=== PATIENT | male | born 1955 | race Caucasian/White ===

== ENCOUNTER → 2016-04-28 | Outpatient (CLI) | payer BC ==
[~2016-04-28] MED LIST: ASPEC81 PO; METO25TA3 PO; PRLSR20 PO; UMEC1INH INH
[2016-04-28 11:24] LABS: CHOLESTEROL/HDL RATIO 5.5
== END | disposition home or self-care (01) ==
LOC: C.LAB 10:09
DX: R10.9 Unspecified abdominal pain (principal); K76.0 Fatty (change of) liver, not elsewhere classified; R73.9 Hyperglycemia, unspecified; E78.5 Hyperlipidemia, unspecified

== ENCOUNTER → 2016-05-03 | Outpatient (CLI) | payer BC ==
[~2016-05-03] MED LIST changes: -METO25TA3 PO
--- NOTE | 2016-05-03 14:06 | DIAGNOSTIC IMAGING REPORT ---
NUCLEAR GASTRIC EMPTYING STUDY: CLINICAL HISTORY: EPIGASTRIC PAIN COMPARISON STUDY: None TECHNIQUE: Following the oral administration of 1.1 mCi of technetium 99m sulfur colloid in egg sandwich and 8 ounces of water, static abdominal images are performed anteriorly and posteriorly at 0 minutes, 1 hour, 2 hours, and 4 hour time intervals. Gastric emptying was calculated utilizing the geometric mean method. FINDINGS: There is approximately 64 % gastric activity remaining at the 1 hour time interval, 55 % at the 2 hour time interval (normal is less than 60%), and 14 % remaining at the 4 hour time interval (normal is less than 10%). IMPRESSION: 1 hour and 2 hour measurements are within normal limits. There is mild gastric retention on the 4 hour measurement : 14% (normal is less than 10%). Electronically signed by: Quinton Woods M.D. 05/03/2016 2:04 PM Dictated Date/Time: 05/03/2016 2:02 PM
--- NOTE | 2016-05-11 11:08 | PULMONARY FUNCTION TEST ---
CLINICAL DATA: A 61-year-old male with a height of 71 inches and a weight of 230 pounds, referred for testing for COPD. Spirometry pre- and post-bronchodilator was performed. Prebronchodilator spirometry demonstrates mild obstructive airways disease. FVC was 89% of predicted. FEV1 was 79% of predicted. [id number] was 53% of predicted. There was minimal change after inhaled bronchodilator. FVC increased 5% to 93% of predicted. FEV1 increased 5% to 83% of predicted. [id number] showed no significant change. IMPRESSION: Mild obstructive airways disease with no significant change after inhaled bronchodilator. MTDD
== END | disposition home or self-care (01) ==
LOC: C.NUCL 08:13
DX: R10.13 Epigastric pain (principal)

== ENCOUNTER → 2016-05-04 | Outpatient (CLI) | payer BC ==
[~2016-05-04] MED LIST changes: +OPTIRAY 320 IV PRN
--- NOTE | 2016-05-04 08:55 | DIAGNOSTIC IMAGING REPORT ---
CT SCAN OF THE ABDOMEN COMBO LIVER PROTOCOL CLINICAL HISTORY: Epigastric abdominal pain. Hepatic steatosis. COMPARISON STUDY: Chest CT dated 04/13/2016. TECHNIQUE: Before and following the IV administration of 94 cc of Optiray 320, CT scan of the abdomen is performed from the lung bases to the pelvic inlet utilizing the liver protocol. Images are reviewed in the axial, sagittal, and coronal planes. IV contrast was administered without complication. Automated dose control exposure was utilized. CT DOSE: 1851.81 mGycm FINDINGS: Lung bases: The heart is normal in size and without pericardial effusion. Emphysema is noted. There is a 4 mm right middle lobe pulmonary nodule seen on axial image #10. A 5 mm pleural-based nodules at the right lung base on image #62. No airspace consolidation or pleural effusion is identified. Linear scarring versus atelectasis is present at the left lung base. There is a tiny hiatal hernia. Liver: The contrast-enhanced liver is enlarged, measuring 19.8 cm in length. The liver demonstrates diffusely diminished attenuation consistent with hepatic steatosis. There is no intrahepatic biliary ductal dilatation. No enhancing hepatic lesion is identified on the postcontrast images. 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 The hepatic veins, portal veins, superior mesenteric vein, and splenic vein are widely patent. Gallbladder: Surgically absent noting clips in the gallbladder fossa. Spleen: Normal in size and attenuation. Pancreas: Unremarkable. Adrenal glands: Unremarkable. Kidneys: No renal calculi are identified on the unenhanced series. The contrast enhanced kidneys are normal in size and without hydronephrosis. The kidneys enhance symmetrically. Abdominal vasculature: The abdominal aorta is normal in course and caliber noting mild atherosclerotic calcification. Bowel: Visualized portions of the small bowel and colon are normal in course and caliber. There are scattered colonic diverticula identified. A normal appendix is partially visualized. Peritoneum: There is no intraperitoneal free air or abdominal ascites. There is a fat-containing umbilical hernia. Lymphadenopathy: None. Skeletal structures: No lytic or blastic lesions are seen. IMPRESSION: 1. Hepatomegaly and hepatic steatosis. 2. No enhancing hepatic lesion is identified in the postcontrast images. 3. 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 4. Emphysema. 5. There are 4 mm right middle lobe and 5 mm right lower lobe pulmonary nodules. These can be followed as per the Fleischner criteria. Please refer to below summary of Fleischner criteria recommendations for follow-up of incidental CT nodules (William Bowman, Guidelines for management of small pulmonary nodules detected on CT scans: A statement from the Fleischner Society, Radiology 237: [phone].) Low Risk Patient: Minimal or no smoking or other known risk factors for malignancy <=4 mm: No follow-up needed. >4-6 mm: Initial follow-up CT at 12 months; if unchanged, no further follow-up. >6-8 mm: Initial follow-up CT at 6-12 months then at 18-24 months if no change. >8 mm: Follow-up CT at \R\3, 9, 24 months, or PET and/or biopsy. High Risk Patient: History of smoking or other known risk factors <=4 mm: Follow-up at 12 months; if unchanged, no further follow-up. >4-6 mm: Initial follow-up CT at 6-12 months then at 18-24 months if no change. >6-8 mm: Initial follow-up CT at 3-6 months then at 9-12 and 24 months if no change. >8 mm: Same as low risk patient. Note: Nodule size measured as average of length and width. Ground glass or partly solid nodules may require longer follow-up to exclude indolent adenocarcinoma. Electronically signed by: Jhonathan Tubbs M.D. 05/04/2016 8:53 AM Dictated Date/Time: 05/04/2016 8:39 AM
== END | disposition home or self-care (01) ==
LOC: C.CTS 07:58
DX: R10.13 Epigastric pain (principal); K76.0 Fatty (change of) liver, not elsewhere classified; J43.9 Emphysema, unspecified; R91.8 Other nonspecific abnormal finding of lung field

== ENCOUNTER → 2016-05-09 | Outpatient (CLI) | payer BC ==
[~2016-05-09] MED LIST changes: -OPTIRAY 320 IV PRN
--- NOTE | 2016-05-09 12:53 | DIAGNOSTIC IMAGING REPORT ---
DOUBLE CONTRAST UPPER GI SERIES CLINICAL HISTORY: Epigastric abdominal pain. COMPARISON STUDY: Abdominal CT dated 05/04/2016. TECHNIQUE: A standard air contrast upper GI series was performed. Spot images of the esophagus and stomach were obtained in multiple obliquities both upright and prone. FINDINGS: The patient swallowed barium without difficulty. The esophagus is structurally normal without evidence of intrinsic or extrinsic mass. The esophageal mucosal pattern is normal. No gastroesophageal reflux was elicited by having the patient perform the Valsalva maneuver. Minimal dysmotility is observed. The gastroesophageal junction distends normally. The stomach is normal in configuration and demonstrates normal distensibility. No mass or ulceration is identified. There was no evidence of gastritis. The duodenal bulb and sweep are unremarkable. Cholecystectomy clips are noted. Fluoroscopy time: 2.2 minutes Fluoroscopic images: 26 IMPRESSION: Minimal esophageal dysmotility. Otherwise unremarkable fluoroscopic upper GI series. Electronically signed by: Jhonathan Tubbs M.D. 05/09/2016 12:52 PM Dictated Date/Time: 05/09/2016 12:50 PM
--- NOTE | 2016-05-15 08:58 | PULMONARY FUNCTION TEST ---
CLINICAL DATA: A 61-year-old male, height is 71 inches and weight of 230 pounds referred for evaluation of COPD. Spirometry pre and post-bronchodilator were performed. FINDINGS: Pre-bronchodilator spirometry demonstrates mild obstructive airways disease. FVC was 89% of predicted. FEV1 was 79% of predicted. [id number] was 53% of predicted. There was minimal change after inhaled bronchodilator with a 5% improvement in FVC to 93% of predicted and a 5% improvement in FEV1 to 83% of predicted. IMPRESSION: Mild obstructive airways disease with minimal improvement after inhaled bronchodilator. MTDD
== END | disposition home or self-care (01) ==
LOC: C.RAD 11:41
DX: R10.13 Epigastric pain (principal); R07.89 Other chest pain; J44.9 Chronic obstructive pulmonary disease, unspecified; K22.4 Dyskinesia of esophagus

== ENCOUNTER → 2016-05-10 | Outpatient (CLI) | payer BC ==
--- NOTE | 2016-05-10 15:16 | DIAGNOSTIC IMAGING REPORT ---
MRI OF THE BRAIN WITHOUT CONTRAST CLINICAL HISTORY: VISUAL DISTURBANCES, NEW ONSET HOLT DISORDER COMPARISON STUDY: December 2007 FINDINGS: Sagittal T1, axial diffusion, proton density and T2 weighted axial, coronal FLAIR, and axial T1-weighted images were acquired. The patient was imaged under 0.7 [place] open MRI scanner. No intra or extra-axial mass lesions are visualized Axial diffusion-weighted images reveal no evidence of acute or subacute infarction. There is no evidence of ventricular dilatation. Proton density T2-weighted and FLAIR images reveal no significant intraparenchymal signal abnormalities. There are no abnormal flow voids. IMPRESSION: Normal MRI of the brain for age. Electronically signed by: Quinton Woods M.D. 05/10/2016 3:14 PM Dictated Date/Time: 05/10/2016 3:12 PM
== END | disposition home or self-care (01) ==
LOC: C.OPENMRI 14:23
DX: H53.9 Unspecified visual disturbance (principal); G44.52 New daily persistent headache (NDPH)

== ENCOUNTER → 2016-05-15 | Day surgery (SDC) | payer BC ==
[2016-05-11 09:44] VITALS: Ht 180.3 cm; Wt 104.5 kg
[~2016-05-15] VITALS: Ht 180.3 cm; Wt 104.5 kg
[~2016-05-15] MED LIST changes: +500ML BSS 0.3ML EPI 1:1000PF IRRIG ONE; +ACETAMINOPHEN 325 MG TAB PO PRN; +AMVISC PLUS 0.8ML SYRINGE INT OCU ONE; +BRIMONIDINE TART 0.2% OP SOLN PER DROP CHARGE ONE; +BSS FLUSH ONE; +ENDOCOAT 0.85ML SYRINGE INT OCU ONE; +EpINEphrine INJ 1MG/ML AMP 1 MG/ML AMP ONE; +LACTATED RINGER'S 1000ML 500 ML IV SCH; +LIDOCAINE 4% OP SOLN DROP CHARGE ONE; +LIDOCAINE 4% OP SOLN DROP CHARGE OPL SCH; +LIDOCAINE HCL 1% MPF 2 ML VIAL ONE; +MIDAZOLAM HCL 1 MG/ML 2ML VIAL ONE; +MOXIFLOXACIN OPH SOLN PER DROP CHARGE ONE; +POVIDONE-IODINE OP SOLN 30 ML BTL ONE; +PROPARACAINE 0.5% OP SOLN PER DROP CHARGE OPL SCH; +TOBRAMYCIN/DEXAMETHASONE OPH OINT PER APPLN CHARGE ONE
[2016-05-15] MEDS: PHENYLEPHRINE HCL 2.5% OP SOLN PER DROP CHARGE OPL SCH ×2 (09:46→09:51)
[2016-05-15] MEDS: TROPICAMIDE 1% OP SOLN PER DROP CHARGE OPL SCH ×2 (09:47→09:52)
[2016-05-15] MEDS: CYCLOPENTOLATE HCL 1% OP SOLN PER DROP CHARGE OPL SCH ×2 (09:48→09:53)
[2016-05-15] MEDS: KETOROLAC 0.5% OP SOLN PER DROP CHARGE OPL SCH ×2 (09:49→09:54)
[2016-05-15] MEDS: MOXIFLOXACIN OPH SOLN PER DROP CHARGE OPL SCH ×2 (09:50→10:00)
--- NOTE | 2016-05-15 11:16 | History & Physical Bridge - [place] ---
H&P Re-Evaluation Bridge Note: I have examined the patient, reviewed the History & Physical and in the interval since the performance of the History & Physical I have noted the following changes of clinical significance: No changes noted
--- NOTE | 2016-05-15 12:12 | Discharge Instructions-SurgCtr ---
Discharge Instructions Visit Reason for Visit: Cataract Left Eye Discharge Discharge Diagnosis / Problem: cataract left eye Discharge Goals Goal(s): Improve function Activity Recommendations Activity Limitations: per Instructions/Follow-up section Lifting Limitations: no more than 5 pounds Anesthesia . Post Anesthesia Instructions: If you have had General Anesthesia or IV Sedation: * Do not drive today. * Resume driving when surgeon permits. * Do not make important decisions or sign legal documents today. * Call surgeon for: 1. Temperature elevations greater than 101 degrees F. 2. Uncontrollable pain. 3. Excessive bleeding. 4. Persistent nausea and vomiting. 5. Medication intolerance (nausea, vomiting or rash). * For nausea and vomiting use only clear liquids such as: tea, soda, bouillon until nausea subsides, then gradually increase diet as tolerated. * If you have any concerns or questions, call your surgeon's office. If physician is unavailable and it is an emergency, call 911 or go to the nearest emergency room. . Instructions / Follow-Up Instructions / Follow-Up ACTIVITY RECOMMENDATIONS: * Light activities * You may walk outside, read, watch television. * Mild irritation and blurred vision are common for the first few days, redness around the white part of the eye is common. MEDICATIONS: Resume previous medications unless instructed otherwise by your surgeon. Eye drops (today and tomorrow): Ofloxacin- one drop in operative eye every 2 hours while awake Prednisolone 1% - one drop in operative eye every 2 hours while awake Ilevro - one drop operative eye 1 times daily SPECIAL CARE INSTRUCTIONS: * If any problems or concerns, please call Dr. Sutherland's office at . * Keep plastic shield taped over eye to sleep at night. * Keep plastic shield taped over eye except to administer eye drops. * Keep plastic shield on until office visit the following day. FOLLOW UP VISIT: Follow-up with Dr. Sutherland in the [place] office as scheduled. If not already scheduled, please call the office at . Diet Recommendations Home Diet: resume previous diet Procedures Procedures Performed: Left Cataract Phacoemulsification With Intraocular Lens Implant Pending Studies Studies pending at discharge: no Medical Emergencies . Who to Call and When: Medical Emergencies: If at any time you feel your situation is an emergency, please call 911 immediately. . Non-Emergent Contact Non-Emergency issues call your: Recenterer . . "Provider Documentation" section prepared by Spencer Sutherland.
--- NOTE | 2016-05-15 12:12 | [facility] Post Operative Brief Note ---
Immediate Operative Summary Operative Date May 15, 2016. Pre-Operative Diagnosis Left Eye Cataract Post-Operative Diagnosis Same Procedure(s) Performed Left Cataract Phacoemulsification With Intraocular Lens Implant Surgeon Dr Sutherland Tattooer Surgeon(s) None Estimated Blood Loss 0ml Findings cataract left eye Specimens None Complication(s) None Disposition Recovery Room / PACU
[2016-05-15 12:18] VITALS: TEMP 36.1
--- NOTE | 2016-05-15 12:33 | OPERATIVE REPORT ---
DATE OF OPERATION: 05/15/2016 PREOPERATIVE DIAGNOSIS: Cataract, left eye. POSTOPERATIVE DIAGNOSIS: Cataract, left eye. PROCEDURE: Phacoemulsification cataract extraction with intraocular lens Placement, left eye. SURGEON: Dr. Sutherland. COMPLICATIONS: None. ESTIMATED BLOOD LOSS: None. ANESTHESIA: Topical with sedation. OPERATION AND FINDINGS: After informed consent was obtained in the holding area the patient was wheeled back to the Operating Room where cardiac monitoring leads and oxygen by nasal cannula was administered by Anesthesia. Gentle IV sedation was given, and the patient's left eye was prepped and draped in the usual sterile fashion. A wire lid speculum was placed into the left?eye and the operating microscope was swung into position. Using 0.12 forceps and a Supersharp blade a paracentesis port was made 3 o'clock hours away from the 3 o'clock position of patient's left eye. 1% non-preserved Lidocaine was then injected into the anterior chamber for anesthesia. A 2.2 mm keratotome blade was then used to make a shelved clear corneal incision at the 3 o'clock position of his left eye. Amvisc was injected into the anterior chamber and a cystotome and Utrata forceps were used to perform a curvilinear capsulorrhexis. BSS on a hydrodissection cannula was used to hydrodissect the lens nucleus away from the capsular bag. The phacoemulsification handpiece was then used in a stop and chop fashion to remove the lens nucleus. The irrigation and aspiration handpiece was then used to remove the residual cortical material. Amvisc was injected into the capsular bag and anterior chamber and a Bausch \T\ Lomb MX60 18.0 Diopter intraocular lens was injected into the capsular bag. Irrigation and aspiration handpiece was used to remove the residual viscoelastic material. The wounds were hydrated and noted to be watertight. The wire lid speculum was removed from the eye. Vigamox, Brimonidine, and TobraDex ointment were placed on the eye and it was shielded. It should be noted that EndoCoat was used during the case to protect the cornea endothelium. DISPOSITION: The patient tolerated the procedure well and was wheeled to the post anesthesia care unit in stable condition. I attest to the content of the Intraoperative Record and any orders documented therein. Any exceptions are noted below. I attest to the content of the Intraoperative Record and any orders documented therein. Any exceptions are noted below. MTDD
[2016-05-15 12:39] VITALS: BP 139/85; PULSE 67; O2SAT 97
--- NOTE | 2016-05-15 12:43 | Anesthesia Progress Nt - [facility] ---
Anesthesia Post Op Note Date & Time May 15, 2016 at 12:43 Vital Signs Pain Intensity: 0 Vital Signs Past 12 Hours Date Time Temp Pulse Resp B/P Pulse Ox O2 Delivery O2 Flow Rate FiO2 05/15/16 12:39 67 22 139/85 97 Room Air 05/15/16 12:18 36.1 70 20 101/68 97 Room Air 05/15/16 09:43 36.3 69 16 119/80 95 Room Air Notes Mental Status: alert / awake / arousable, participated in evaluation Nausea / Vomiting: adequately controlled Pain: adequately controlled Airway Patency, RR, SpO2: stable & adequate BP & HR: stable & adequate Hydration State: stable & adequate Anesthetic Complications: no major complications apparent
== END | disposition home or self-care (01) ==
LOC: X.SURG 09:32
PROVIDERS: ATTEND Ophthalmology
DX: H26.9 Unspecified cataract (principal); J44.9 Chronic obstructive pulmonary disease, unspecified; J45.909 Unspecified asthma, uncomplicated; I10 Essential (primary) hypertension; Z98.41 Cataract extraction status, right eye

== ENCOUNTER → 2016-10-19 | Outpatient (CLI) | payer BC ==
[~2016-10-19] MED LIST changes: -500ML BSS 0.3ML EPI 1:1000PF IRRIG ONE; -ACETAMINOPHEN 325 MG TAB PO PRN; -AMVISC PLUS 0.8ML SYRINGE INT OCU ONE; -BRIMONIDINE TART 0.2% OP SOLN PER DROP CHARGE ONE; -BSS FLUSH ONE; -ENDOCOAT 0.85ML SYRINGE INT OCU ONE; -EpINEphrine INJ 1MG/ML AMP 1 MG/ML AMP ONE; -LACTATED RINGER'S 1000ML 500 ML IV SCH; -LIDOCAINE 4% OP SOLN DROP CHARGE ONE; -LIDOCAINE 4% OP SOLN DROP CHARGE OPL SCH; -LIDOCAINE HCL 1% MPF 2 ML VIAL ONE; -MIDAZOLAM HCL 1 MG/ML 2ML VIAL ONE; -MOXIFLOXACIN OPH SOLN PER DROP CHARGE ONE; -POVIDONE-IODINE OP SOLN 30 ML BTL ONE; -PROPARACAINE 0.5% OP SOLN PER DROP CHARGE OPL SCH; -TOBRAMYCIN/DEXAMETHASONE OPH OINT PER APPLN CHARGE ONE
--- NOTE | 2016-10-19 13:47 | DIAGNOSTIC IMAGING REPORT ---
GI MECKEL'S SCAN CLINICAL HISTORY: 61 years-old Male presenting with BRIGHT RED BLOOD PER RECTUM. TECHNIQUE: Following the IV administration of 16.4 mCi of technetium 99m pertechnetate, nuclear Meckel's scan was performed. The patient received cimetidine the night before the exam to improve the sensitivity of the exam. Initially, anterior flow images were obtained every 2 seconds. Anterior dynamic images were subsequently obtained every minute for a total of 60 minutes. COMPARISON: None. FINDINGS: Initial flow images demonstrate expected blood pool activity. Subsequently, expected distribution of radiotracer in the liver and stomach. Faint activity noted within the bowel within the expected range of normal. Excreted radiotracer within the bladder is partially included within the [id number]. Only the upper rectum is potentially included within the [id number] and not obscured by the urinary bladder. Allowing for this limitation, no uptake to suggest ectopic gastric mucosa. Subtle focus of activity noted in the left mid abdomen that is felt to most likely represent normal bowel. IMPRESSION: 1. No convincing uptake to suggest ectopic gastric mucosa. Electronically signed by: Rehan Doe 10/19/2016 1:45 PM Dictated Date/Time: 10/19/2016 1:20 PM
== END | disposition home or self-care (01) ==
LOC: C.NUCL 10:03
PROVIDERS: ATTEND Internal Medicine Gastroenterology
DX: K62.5 Hemorrhage of anus and rectum (principal)